=== PATIENT | female | born 1985 | race Caucasian/White ===

== ENCOUNTER 2018-12-23 21:45 | Outpatient (CLI) | payer OTHER ==
[~2018-12-23] VITALS: Ht 167.6 cm; Wt 77.5 kg
[2018-12-23 21:37] VITALS: Ht 167.6 cm; Wt 77.5 kg
[2018-12-23 21:54] VITALS: BP 119/70; PULSE 87; RESP 20
[2018-12-23] MEDS ORDERED: FER325 PO (22:13)
[2018-12-23] MEDS ORDERED: PREN-99 PO (22:13)
[2018-12-23] MEDS ORDERED: LORA10CA9 PO (22:13)
[2018-12-23] MEDS ORDERED: TERBUTALINE 1 MG/ML INJ SC STA (22:48)
[2018-12-23] MEDS ORDERED: LACTATED RINGER'S 1,000 ML IV ONE (23:00)
[2018-12-24] MEDS ORDERED: LACTATED RINGER'S 1,000 ML IV SCH
--- NOTE | 2018-12-24 01:51 | PN ---
Triage Information Date/Time Reason for visit: Abd/pelvic pain Weeks of Gestation 33-year-old 1 para 0 at 29 weeks and 2 days of gestation with estimated date of delivery February 28, 2019 The patient presents with chief complaint of abdominal pain and uterine contractions She reports positive movement, denies vaginal bleeding or leaking fluid /Para 1 para 0 Diabetes: none Hypertention: none Objective Vital Signs Date Temp Pulse Resp B/P (MAP) Pulse Ox O2 O2 Flow FiO2 Time Delivery Rate 12/23/18 97.8 87 20 119/70 Room Air 21:54 (86) Intake and Output 12/23/18 12/23/18 12/24/18 1515:00 23:00 07:00 IntakeIntake Total 1000 ml BalanceBalance 1000 ml Heart Rate: 140's Heart Rate Comments heart rate tracing category 1 Contractions: < 5 Minutes Apart Exam Cervix closed per nurse Results/Medications Result Diagram: 12/23/18 2345 Results 24 hrs Laboratory Tests Test 12/23/18 22:00 12/23/18 23:45 Urine Color COLORLESS Urine Clarity CLEAR Urine pH 7.0 Urine Specific [place] 1.002 L Urine Ketones NEGATIVE Urine Nitrite NEGATIVE Urine Bilirubin NEGATIVE Urine Urobilinogen NEGATIVE Urine Leukocyte Esterase 1+ H Urine Microscopic RBC 0 Urine Microscopic WBC 1 Urine Hemoglobin NEGATIVE Urine Glucose NEGATIVE Urine Total Protein NEGATIVE White Blood Count 12.2 H Red Blood Count 3.84 L Hemoglobin 11.8 L Hematocrit 34.6 L Mean Corpuscular Volume 90.1 Mean Corpuscular Hemoglobin 30.7 Mean Corpuscular Hemoglobin Concent 34.1 Red Cell Distribution Width 12.9 Platelet Count 191 Mean Platelet Volume 11.2 H Immature Granulocytes % 3.800 H Neutrophils % 61.9 Lymphocytes % 25.7 Monocytes % 7.8 Eosinophils % 0.4 Basophils % 0.4 Nucleated Red Blood Cells % 0.0 Immature Granulocytes # 0.460 H Neutrophils # 7.5 Lymphocytes # 3.1 H Monocytes # 1.0 H Eosinophils # 0.1 Basophils # 0.1 Nucleated Red Blood Cells # 0.0 Medications Current Medications Lactated Ringer's 1,000 ml @ 125 mls/hr Q8H IV ; Start 12/24/18 at 00:00 Imaging Results PROCEDURE: US OB biophysical profile. Ultrasound cervix CLINICAL INDICATION: decreased movements, labor TECHNIQUE: Multiple sonographic images of the pelvis were obtained. In addition, transvaginal images of the cervix were obtained. The images were reviewed on a PACS workstation. COMPARISON: No prior studies are available for comparison. FINDINGS: The cervix measures 2.9 cm in length. There is a single live intrauterine gestation. Cardiac activity is present with 123 beats per minute. There is a vertex presentation. The placenta is anterior. There is no evidence of placental abruption. There is a normal amount of amniotic fluid with an LOPEZ = 16.6 cm. Biophysical profile: movement 2/2 tone 2/2. breathing 2/2 LOPEZ 2/2 Total 04/06 RPTAT: AA . IMPRESSION: Normal biophysical profile. Cervix measures 2.9 cm in length. .Darron Marcano MD, Date Time Electronically viewed and signed by .Darron Marcano MD, on 12/23/2018 22:54 .S/ CC: FRANCA SALEH MD [phone] Disposition: Discharge Assessment/Plan Patient received IV fluids and terbutaline Urine culture was sent kick count instructions were given Labor precautions were given Copies To: CC: FRANCA SALEH MD ; MYRA MCBRIDE MD Dec 24, 2018 01:51
--- NOTE | 2018-12-25 04:39 | TRIAGE ---
OB Triage Datetime Report Generated by CPN: 12/25/2018 04:39 Datetime: 12/24/2018 00:15 Labor Evaluation Frequency: NONE Monitor Mode: External Heart Rate FHR Baseline Rate: 135 Monitor Mode: External US Variability: Moderate 6-25 bpm Accelerations: 15X15 Decelerations: None Category: Category I Datetime: 12/23/2018 23:52 Monitor Mode: External Datetime: 12/23/2018 23:26 Labor Evaluation Frequency: IRREGULAR Monitor Mode: External Duration (sec)2399: 40-60 Quality: Mild Pattern: Normal: <= 5 Contractions in 10 Minutes Resting Tone [place]: Relaxed Heart Rate FHR Baseline Rate: 130 Monitor Mode: External US Variability: Moderate 6-25 bpm Accelerations: 15X15 Decelerations: None Category: Category I Datetime: 12/23/2018 23:22 Monitor Mode: External US Datetime: 12/23/2018 23:21 Monitor Mode: External Datetime: 12/23/2018 23:19 Monitor Mode: External US Datetime: 12/23/2018 22:32 Vaginal Exam Dilatation (cms): 0.0 Effacement (%): 0 Station: -3 Exam By: azy k RN Membrane Status: Intact Datetime: 12/23/2018 22:30 Labor Evaluation Frequency: 2-4 Monitor Mode: External Duration (sec)2399: 50-70 Quality: Moderate Pattern: Normal: <= 5 Contractions in 10 Minutes Resting Tone [place]: Relaxed Heart Rate FHR Baseline Rate: 130 Monitor Mode: External US Variability: Moderate 6-25 bpm Accelerations: 15X15 Decelerations: None Category: Category I Datetime: 12/23/2018 21:59 Monitor Mode: External Datetime: 12/23/2018 21:52 Monitor Mode: External Datetime: 12/23/2018 21:51 Monitor Mode: External US Datetime: 12/23/2018 21:50 Stage of : OB Triage Datetime: 12/23/2018 21:48 Time of Arrival: 12/23/2018 21:37 EGA: 29.0 Arrived By: Wheelchair Arrived From: Home Chief Complaint: c/o constant abdominal pain since 1900 after running after her dog and bending ove r to carry the dog Movement: Present Contractions: Denies/Absent Rupture of Membranes: Denies Vaginal Bleeding: None Vaginal Discharge: Denies Recent Sexual Intercouse: Denies Abdominal Trauma: Not Applicable Patient Complaints: Other Time Provider Notified: 12/23/2018 22:20 Provider Notified: Dr Zamarripa Initial Plan: EFM,CVL,BPP,UA,TERB,IV HYDRATION
== END 2018-12-24 01:45 | disposition home or self-care (01) ==
LOC: OBT 21:45 → L-D 21:47 → OBT 12-24 01:45
PROVIDERS: ATTEND Obstetrics & Gynecology
DX: O62.9 Abnormality of forces of labor, unspecified (principal); O26.893 Other specified pregnancy related conditions, third trimester; R10.2 Pelvic and perineal pain; Z3A.29 29 weeks gestation of pregnancy
CPT/HCPCS: 36415; 76817; 76818; 81001; 85025; 87086; 96360; 96372; G0463; J3105; J7120

== ENCOUNTER 2019-02-23 13:05 | Outpatient (CLI) | payer OTHER ==
[~2019-02-23] VITALS: Ht 167.6 cm; Wt 81.0 kg
[~2019-02-23 13:05] MED LIST: FER325 PO; LORA10CA9 PO; PREN-99 PO
[2019-02-23 13:24] VITALS: Ht 167.6 cm; Wt 81.0 kg
[2019-02-23 13:38] VITALS: BP 112/76
--- NOTE | 2019-02-23 14:42 | PN ---
Triage Information Date/Time 02/23/2019 Reason for visit: well-being Weeks of Gestation 39.2 /Para 1 para 0 Diabetes: none Hypertention: none Objective Vital Signs Date Temp Pulse Resp B/P (MAP) Pulse Ox O2 O2 Flow FiO2 Time Delivery Rate 02/23/19 98.5 112/76 13:38 (88) Heart Rate: 140's Heart Rate Comments Reactive Contractions: None Results/Medications Imaging Results 1. Single living intrauterine gestation in cephalic position. 2. Biophysical profile = 8/8. 3. LOPEZ = 13.8 cm. Disposition: Discharge Assessment/Plan Home Will induce EDC FRANCA SALEH MD Feb 23, 2019 14:42
--- NOTE | 2019-02-23 14:47 | TRIAGE ---
OB Triage Datetime Report Generated by CPN: 02/23/2019 14:46 Datetime: 02/23/2019 13:19 Stage of : OB Triage Assessment Type: Triage Time of Arrival: 02/23/2019 12:55 EGA: 37.6 Arrived By: Ambulatory Arrived From: Office Chief Complaint: SENT NST BPP DFM Movement: Decreased Contractions: Denies/Absent Rupture of Membranes: Denies Vaginal Bleeding: None Vaginal Discharge: Denies Recent Sexual Intercouse: Denies Abdominal Trauma: Not Applicable Patient Complaints: None Time Provider Notified: 02/23/2019 13:00 Provider Notified: LAW Initial Plan: NST BPP Maternal Assessment Level of Consciousness: Keenly Alert, Responsive DTR's/Clonus: DTRs 2+; No Clonus Headache: Denies Blurred Vision: No Respiratory Effort: Unlabored; Regular Rhythm; Equal Expansion Breath Sounds, Left: Clear and Equal Breath Sounds, Right: Clear and Equal Nausea/Vomiting: Denies RUQ Epigastric Pain: Denies Lower Extremities Edema: None Degree: None Upper Extremities Edema: None Degree: None Facial Edema: None Temperature Route: Oral Fall Risk Assessment History of Falling: (0) No Secondary Diagnosis: (0) No Ambulatory Aid: (0) Bedrest/Nurse Assist IV Therapy: (0) No Gait: (0) Normal/Bedrest/Immobile Mental Status: (0) Oriented to Own Ability Fall Score: 0 Fall Risk Score Definition: No Risk: No action required Labor Evaluation Monitor Mode: External (Annotations: INITIAL PLAcement ) Monitor Mode: External US (Annotations: initial placement ) Pain Assessment Pain Scale: 0 Pain Presence: None/Denies Pain Type: N/A Datetime: 12/24/2018 01:23 Stage of : OB Triage Labor Evaluation Monitor Mode: External Quality: Mild Pattern: Normal: <= 5 Contractions in 10 Minutes Resting Tone [place]: Relaxed Heart Rate FHR Baseline Rate: 140 Monitor Mode: External US FHR Baseline Changes: No Baseline Change Variability: Moderate 6-25 bpm Accelerations: 15X15 Decelerations: None Category: Category I Pain Assessment Pain Scale: 0 Pain Presence: None/Denies Pain Type: N/A Datetime: 12/23/2018 21:48 EGA: 29.0
== END 2019-02-23 15:00 | disposition home or self-care (01) ==
LOC: L-D 13:05 → OBT 13:05 → L-D 13:14 → OBT 15:00
PROVIDERS: ATTEND Obstetrics & Gynecology
DX: O36.8130 Decreased fetal movements, third trimester, not applicable or unspecified (principal); Z3A.39 39 weeks gestation of pregnancy
CPT/HCPCS: 76818; Z7500; G0463

== ENCOUNTER 2019-02-28 04:03 | Inpatient (IN) | payer OTHER ==
[~2019-02-28] VITALS: Ht 167.6 cm; Wt 80.8 kg
[2019-02-28 04:26] VITALS: Ht 167.6 cm; Wt 80.8 kg
[2019-02-28] MEDS ORDERED: OXYTOCIN 30 UNITS/LR 500 ML IV PRN (04:30)
[2019-02-28] MEDS ORDERED: OXYTOCIN 30 UNITS/LR 500 ML IV SCH ×2 (04:30)
[2019-02-28] MEDS ORDERED: CARBOPROST 250 MCG INJ IM PRN (04:30)
[2019-02-28] MEDS ORDERED: LIDOCAINE 1% (MPF) 30 ML INJ INJ PRN (04:30)
[2019-02-28] MEDS ORDERED: MISOPROSTOL 200 MCG TAB PR PRN (04:30)
[2019-02-28] MEDS ORDERED: METHYLERGONOVINE 0.2 MG INJ IM PRN (04:30)
[2019-02-28] MEDS ORDERED: LACTATED RINGER'S 1,000 ML IV PRN (04:30)
[2019-02-28] MEDS ORDERED: MINERAL OIL LIGHT 10 ML VIAL TOP PRN (04:30)
[2019-02-28] MEDS ORDERED: BUTORPHANOL 2 MG INJ IV PRN (04:30)
[2019-02-28] MEDS: LACTATED RINGER'S 1,000 ML IV SCH ×4 (05:50→21:08)
--- NOTE | 2019-02-28 12:18 | HP ---
Date/Time of Note Date/Time of Note DATE: 02/28/19 TIME: 12:14 OB - History Hx of Present Free Text/Dictation 33-year-old female 1 para 0 at 40 weeks gestation was supposed to be induced on 02 28 however presented herself in labor started few hours prior to admission Chief Complaint: Labor contractions Last Menstrual Period: May 24, 2018 Estimated Due Date: Feb 28, 2019 : 1 Para: 0 Care: Good Care Ultrasounds: Normal mid trimester US Obstetrical Complications: None Medical Complications: None Past Family/Social History * Past Medical, Surgical, Family and Obstetric Histories reviewed from chart. Blood Type: AB+ Rubella: immune RPR/VDRL: Negative GBS Status: Negative HBsAG: Negative OB Admission Exam Vital Signs Vital Signs Vital signs are stable Physical Exam HEENT: WNL Heart: Rhythm Normal Lungs: Clear, Equal Abdomen: WNL Extremities: Normal Reflexes: Normal Cervical Dilatation: 3cm Effacement: 50% Station: -3 Membranes: Intact Heart Rate: 140's Accelerations: Accelerations Present Decelerations: No Decelerations Varibility: Marked Contractions on Admission: < 5 Minutes Apart Date/Time Contractions Began: 02/28/2019 Frequency of Contractions: Every 4 to 5 minutes Duration: Over 60 seconds Intensity: Mild Last 72 hours Lab Results CBC & BMP 02/28/19 04:50 OB Assessment/Plan Other Assessment: Term gestation in labor pains Other plan: Proceed with a spontaneous labor and augment if necessary FRANCA SALEH MD Feb 28, 2019 12:18
[2019-02-28] MEDS ORDERED: FENTAnyl 2MCG/ML-ROPIV 0.2% 100 ML ONE (20:13)
--- NOTE | 2019-02-28 20:16 | PREAC ---
Date/Time of Note Date/Time of Note DATE: 02/28/19 TIME: 20:15 Anesthesia Eval and Record Evaluation Time Pre-Procedure Interview DATE: 02/28/19 TIME: 20:15 Age 33 Sex female NPO: 8 hrs Preoperative diagnosis LABOR PAIN Planned procedure LABOR EPIDURAL Past Medical History Past Medical History: Includes : : (1), Para: (0), Gestational age: (40 WKS) Surgery & Anesthesia Issues No known issue Meds Anticoagulation: No Beta Dalton within 24 hr: No Reason Beta Dalton not given: Pt. not on B-Dalton Reported Medications Loratadine (Loratadine) 10 Mg Capsule, 10 MG PO, CAP 12/23/18 Ferrous Sulfate* (Ferrous Sulfate*) 325 Mg Tabec, 325 MG PO DAILY, TAB 12/23/18 Vit #76/Iron,Carb/FA (Pnv 29-1 Tablet) 1 Each Tablet, 1 EACH PO, TAB 12/23/18 Current Medications Lactated Ringer's 1,000 ml @ 125 mls/hr Q8H IV Last administered on 02/28/19at 15:20; Admin Dose 125 MLS/HR; Start 02/28/19 at 04:30 Butorphanol Tartrate (Stadol) 2 mg Q2H PRN IV .PAIN SCALE 6-10; Start 02/28/19 at 04:30 Lidocaine (Xylocaine 1% (Mpf)) 30 ml ONCE PRN INJ .EPISIOTOMY; Start 02/28/19 at 04:30 Oxytocin/Lactated Ringer's 500 ml @ 500 mls/hr ONCE POST IV ; Start 02/28/19 at 04:30 Oxytocin/Lactated Ringer's 500 ml @ 125 mls/hr POST IV ; Start 02/28/19 at 04:30 Lactated Ringer's 1,000 ml @ 2,000 mls/hr Q30M PRN IV .ANESTHESIA Last administered on 02/28/19at 19:48; Admin Dose 2,000 MLS/HR; Start 02/28/19 at 04:30 Oxytocin/Lactated Ringer's 500 ml @ 0 mls/hr ONCE PRN IV .VAGINAL BLEEDING; Start 02/28/19 at 04:30 Methylergonovine Maleate (Methergine) 0.2 mg ONCE PRN IM .VAGINAL BLEEDING; Start 02/28/19 at 04:30 Carboprost Tromethamine (Hemabate) 250 mcg ONCE PRN IM .VAGINAL BLEEDING; Start 02/28/19 at 04:30 Misoprostol (Cytotec) 1,000 mcg ONCE PRN ME .VAGINAL BLEEDING; Start 02/28/19 at 04:30 Meds reviewed: Yes Allergies Coded Allergies: No Known Allergy (Unverified , 02/28/19) Allergies Reviewed: Yes Labs/Studies Labs Reviewed: Reviewed by anesthesiologist Result Diagram: 02/28/19 0450 Laboratory Tests 02/28/19 04:50 Blood Bank Test 02/28/19 04:50 Antibody Screen NEGATIVE Blood Type AB POSITIVE Rh Immune Globulin Candidate NO test: N/A Pre-procedure Exam Airway: Adequate mouth opening, Adequate thyromental dist Mallampati: Mallampati II Teeth: Normal Lung: Normal Heart: Normal ASA Physical Status ASA physical status: 2 Emergency: None Planned Anesthetic Neuraxial: Epidural Planned Pain Management Epidural Pre-operative Attestations Prior to commencing anesthesia and surgery, the patient was re-evaluated, there was verification of: *The patient's identity *The results of appropriate recent lab work and preoperative vital signs *The above evaluation not changing prior to induction *Anesthetic plan, risk benefits, alternative and complications discussed with patient/family; questions answered; patient/family understands, accepts and wishes to proceed. Venkatesh Calhoun M.D. Feb 28, 2019 20:16
--- NOTE | 2019-02-28 20:55 | PAC ---
Date/Time of Note Date/Time of Note DATE: 02/28/19 TIME: 20:54 Post-Anesthesia Notes Post-Anesthesia Note Last documented vital signs HR 77 RR 14 BP 117/89 T 98 Activity: WNL Respiratory function: WNL Cardiovascular function: WNL Mental status: Baseline Pain reasonably controlled: Yes Hydration appropriate: Yes Nausea/Vomiting absent: Yes Venkatesh Calhoun M.D. Feb 28, 2019 20:55
[2019-02-28] MEDS ORDERED: TRIMETHOBENZAMIDE 100 MG/ML VIAL IM PRN (21:00)
[2019-02-28] MEDS ORDERED: NALOXONE (0.4 MG/ML) INJ IV PRN (21:00)
[2019-02-28] MEDS ORDERED: ONDANSETRON 4 MG INJ IV PRN (21:00)
[2019-02-28] MEDS ORDERED: DIPHENHYDRAMINE 50 MG INJ IV PRN (21:00)
[2019-03-01] MEDS ORDERED: MINERAL OIL LIGHT 10 ML VIAL TOP ONE
[2019-03-01] MEDS: FENTAnyl 2MCG/ML-ROPIV 0.2% 100 ML BAG EPI SCH ×2 (03:45→10:41)
[2019-03-01] MEDS: LACTATED RINGER'S 1,000 ML IV SCH ×2 (04:13→12:08)
[2019-03-01] MEDS ORDERED: KETOROLAC 30 MG INJ IV STA (14:38)
[2019-03-01] MEDS ORDERED: ACETAMINOPHEN 500 MG TAB PO STA (14:53)
--- NOTE | 2019-03-01 14:53 | LDN ---
Date/Time of Note Date/Time of Note DATE: 03/01/19 TIME: 14:50 Delivery Summary Normal spontaneous vaginal delivery of viable infant over midline episiotomy Weeks of Gestation 40+ weeks Placenta Delivered: Spontaneously, Intact & Complete Meconium: Particulate Episiotomy: Yes Indication for episiotomy Thick particulate meconium Along second stage Perineal laceration: 0 Laceration repair: Midline episiotomy was repaired in layers using 2-0 Vicryl running stitch on deeper layers and 2 chromic and superficial layer Anesthesia type: Epidural Estimated blood loss: 300 Sponge & Needle done & correct: Yes All needle counts correct: Yes Any foreign bodies felt in the: No Infant Delivery Information Sex Infant Sex: male Apgars 1 Minute: 8 5 Minute: 9 Suctioning Nose & mouth suctioned at carlos: Yes Delee suction performed: No Umbilical Cord Umbilical cord with: 3 Vessels Cord presentations: no nuchal cord Cord Blood was obtained: Yes Mother & Baby Disposition Disposition Mom & Baby to Maternity; Good: Yes (Mother and baby were recovering in good condition) Mom transferred to: Other (Maternity floor) Baby to NICU: No FRANCA SALEH MD Mar 01, 2019 14:53
[2019-03-01 16:30] VITALS: BP 110/63; PULSE 62; RESP 18
[2019-03-01] MEDS: LACTATED RINGER'S 1,000 ML IV* SCH (16:45)
[2019-03-01] MEDS ORDERED: CARBOPROST 250 MCG INJ IM PRN (17:00)
[2019-03-01] MEDS ORDERED: BENZOCAINE 20% 56 ML SPRAY TOP PRN (17:00)
[2019-03-01] MEDS ORDERED: MISOPROSTOL 200 MCG TAB PR PRN (17:00)
[2019-03-01] MEDS ORDERED: METHYLERGONOVINE 0.2 MG INJ IM PRN (17:00)
[2019-03-01] MEDS ORDERED: OXYTOCIN 30 UNITS/LR 500 ML IV PRN (17:00)
[2019-03-01] MEDS ORDERED: WITCH HAZEL/GLYCERIN PAD PR PRN (17:00)
[2019-03-01] MEDS ORDERED: DIBUCAINE 1% 30 GM OINT TOP PRN (17:00)
[2019-03-01] MEDS ORDERED: HYDROCODONE/APAP (5/325) TAB PO PRN ×2 (17:00)
[2019-03-01] MEDS ORDERED: ZOLPIDEM 5 MG TAB PO PRN (17:00)
[2019-03-01] MEDS: CEPHALEXIN 500 MG CAP PO SCH ×2 (17:49→23:54)
[2019-03-01] MEDS: IBUPROFEN 600 MG TAB PO SCH ×2 (17:49→23:54)
[2019-03-01] MEDS: LANOLIN HPA 1 PKT TOP PRN (19:06)
[2019-03-01 20:00] VITALS: BP 130/72; PULSE 55; RESP 18
[2019-03-01] MEDS: MAGNESIUM HYDROXIDE 30ML CUP PO SCH (21:23)
[2019-03-01] MEDS: SENNA/DOCUSATE NA (8.6MG/50MG) TAB PO SCH (21:23)
[2019-03-02] VITALS: BP 128/66; PULSE 70; RESP 18
[2019-03-02] MEDS: LACTATED RINGER'S 1,000 ML IV* SCH (00:45)
[2019-03-02 04:00] VITALS: BP 133/80; PULSE 60; RESP 18
[2019-03-02] MEDS: CEPHALEXIN 500 MG CAP PO SCH ×4 (05:30→23:18)
[2019-03-02] MEDS: IBUPROFEN 600 MG TAB PO SCH ×4 (05:30→23:19)
[2019-03-02 07:45] VITALS: BP 95/63; PULSE 54; RESP 16
[2019-03-02] MEDS: SENNA/DOCUSATE NA (8.6MG/50MG) TAB PO SCH ×2 (08:50→21:59)
[2019-03-02] MEDS: MAGNESIUM HYDROXIDE 30ML CUP PO SCH ×2 (08:50→21:59)
--- NOTE | 2019-03-02 11:41 | DS ---
Date/Time of Note Date/Time of Note Home today or next day DATE: 03/02/19 TIME: 11:40 Obstetrical Discharge Record Final Diagnosis Final Diagnosis: Term delivered Other Final Diagnosis Status post vaginal delivery Vaginal Delivery Obstetrical Delivery: Spontaneous, Episiotomy, Repaired Complications Augmentation: No Induction: No Condition on Discharge Physical Assessment Last Vitals: See nurse's notes Voiding: Yes Bowel Movement: Yes Breast: Soft, non-tender, Filling Fundus: Firm Abdomen and Incision: Abdomen is soft with firm fundus Episiotomy: Episiotomy appears to be healing well and perineum is clean Calf Tenderness: No Patient Condition: Good FRANCA SALEH MD Mar 02, 2019 11:41
--- NOTE | 2019-03-02 11:43 | PD.PPDC ---
INSTITUTIONAL ASSET MANAGER Discharge Instruction Provider Information Physician Information 33-year-old female had vaginal delivery Diagnosis [id number] Final Diagnosis: Qoicx9c Status post vaginal delivery Condition Nurul9Es Patient Condition: Arcla5g Good Diet Tnoll5Sk Diet: Scmxe7z Resume Regular Diet Activity/Restrictions [id number] Activity: Knykd7l Normal Activity May Shower [id number] Restrictions: Dfasx4g Nothing in the Vagina [id number] Return to Work or School: [id number] Apr 17, 2019 Follow-up Follow-up with Physician: 2, 4, Week/Weeks Return to clinic for [id number] OB Instructions: Sfwqj2c Breast Tenderness Depression Comment: Pelvic rest for 6 weeks FRANCA SALEH MD Mar 02, 2019 11:43
[2019-03-02] MEDS ORDERED: IBUP-1542 PO (11:45)
[2019-03-02 16:00] VITALS: BP 97/64; PULSE 65; RESP 18
[2019-03-02 20:15] VITALS: BP 102/67; PULSE 68; RESP 18
[2019-03-02] MEDS: LANOLIN HPA 1 PKT TOP PRN (23:18)
[2019-03-03 04:30] VITALS: BP 116/60; PULSE 69; RESP 18
[2019-03-03] MEDS: IBUPROFEN 600 MG TAB PO SCH ×2 (05:49→11:51)
[2019-03-03] MEDS: CEPHALEXIN 500 MG CAP PO SCH ×2 (05:49→11:51)
[2019-03-03 08:00] VITALS: BP 121/70; PULSE 64; RESP 18
[2019-03-03] MEDS: LANOLIN HPA 1 PKT TOP PRN (08:51)
[2019-03-03] MEDS: MAGNESIUM HYDROXIDE 30ML CUP PO SCH (08:51)
[2019-03-03] MEDS: SENNA/DOCUSATE NA (8.6MG/50MG) TAB PO SCH (08:51)
[2019-03-03] MEDS ORDERED: MEASLES,MUMPS,RUBELLA VACCINE INJ SC* ONE (09:00)
[2019-03-03] MEDS ORDERED: DIPHTH/TET/ACEL PERTUSS (ADULT) 0.5 ML VIAL IM* ONE (09:00)
[2019-03-03] MEDS ORDERED: VARICELLA VACCINE LIVE/PF 1,350 UNIT/0.5 ML ML SC* ONE (09:00)
[2019-03-03 15:55] VITALS: BP 110/74; PULSE 68; RESP 16
--- NOTE | 2019-03-04 18:53 | DELSUM ---
Delivery Summary A-C Datetime Report Generated by CPN: 03/04/2019 18:52 DELIVERY PERSONNEL Clinical Nutrition Manager: Duvo, Sharon MATERNAL INFORMATION Delivery Anesthesia: Epidural Medications in Delivery: PITOCIN 30 UNITS Delivery QBL (ml): 246 Placenta Cultured: Yes Maternal Complications: None LABOR SUMMARY EDC: 02/28/2019 00:00 No. Babies in Womb: 1 Attempted: No Labor Anesthesia: Epidural LABOR INFORMATION Reason for Induction: Not Applicable Onset of Labor: 02/27/2019 23:00 Complete Dilatation: 03/01/2019 02:34 Oxytocin: N/A Group B Beta Strep: Negative Antibiotics # of Doses: 0 Steroids Given: None Reason Steroids Not Administered: Not Applicable MEMBRANES Membranes Rupture Method: Spontaneous Rupture of Membranes: 03/01/2019 04:16 Length of Rupture (hr): 10.28 Amniotic Fluid Color: Heavy Meconium Amniotic Fluid Amount: Copious Amniotic Fluid Odor: None STAGES OF LABOR Stage 1 hr: 27 Stage 1 min: 34 Stage 2 hr: 11 Stage 2 min: 59 Stage 3 hr: 0 Stage 3 min: 3 Total Time in Labor hr: 39 Total Time in Labor min: 36 VAGINAL DELIVERY Episiotomy: Median Laceration Extension: N/A Laceration Type: None Initial Vag Sponge Count: 10 Final Vag Sponge Count: 10 Initial Vag Sharps Count: 1 Final Vag Sharps Count: 3 Sponge Count Correct: Yes; Vaginal Sweep Performed Sharps Count Correct: Yes BABY A INFORMATION Infant Delivery Date/Time: 03/01/2019 14:33 Method of Delivery: Vaginal Born in Route : No : N/A Forceps: N/A Vacuum Extraction: Successful Shoulder Dystocia : No ASSISTED DELIVERY BABY A Indication for Assisted Delivery: VARIABLE DECELERATION Catheter Prior to Procedure: Yes Station Vacuum/Forcep Apply: +2 Position Vacuum/Forcep Apply: Left Occipital Anterior Vacuum Number of Pulls: 3 Vacuum Number of PopOffs: 2 Reduce Pressure btwn Ctx: Yes Vacuum Quitline Counselor: KIWI Total Time Vacuum Applied: 36 SECONDS Vacuum/Forceps Comment: MD PRESSURE APPLIED. SHOULDER DYSTOCIA BABY A Infant Delivery Date/Time: 03/01/2019 14:33 PRESENTATION/POSITION BABY A Presentation: Cephalic Cephalic Presentation: Vertex Vertex Position: Left Occipital Anterior Breech Presentation: N/A PLACENTA INFORMATION BABY A Placenta Delivery Time : 03/01/2019 14:36 Placenta Method of Delivery: Spontaneous Placenta Status: Delivered SCORES BABY A Heart Rate 1 min: >100 bpm Resp Effort 1 min: Good Cry Reflex Irritability 1 min: Cough/Sneeze/Pulls Away Muscle Tone 1 min: Active Motion Color 1 min: Blue/Pale Resuscitation Effort 1 min: Tactile Stimulation SCORE 1 MIN: 8 Heart Rate 5 min: >100 bpm Resp Effort 5 min: Good Cry Reflex Irritability 5 min: Cough/Sneeze/Pulls Away Muscle Tone 5 min: Active Motion Color 5 min: Body [place], Extremit Blue Resuscitation Effort 5 min: Tactile Stimulation SCORE 5 MIN: 9 INFORMATION BABY A Gestational Age at Delivery: 40.1 Gestational Status: Full Term- 39- 40.6 Weeks Infant Outcome : Liveborn, with signs of life Condition : Stable Sex: Male IDENTIFICATION/MEDS BABY A ID Band Number: [id number] ID Band Location: Right Leg; Left Arm Sensor Applied: Yes Sensor Number: [id number] Sensor Location : Cord Clamp Vitamin K Given : Not Given Erythromycin Given: Not Given WEIGHT/LENGTH BABY A Infant Birthweight (gm): 3305 Infant Weight (lb): 7 Infant Weight (oz): 5 Infant Length (in): 20.50 Length (cm): 52.07 CORD INFORMATION BABY A No. Cord Vessels: 3 Nuchal Cord : N/A Cord Blood Taken: Yes Infant Suction: Mouth; Nose ASSESSMENT BABY A Complications: Meconium Physical Findings at Delivery: Caput Succedaneum; Molding of the Head Respirations: Appears Normal Waste Disposal Attendant/ALS Called : Yes Care By: So MARIA Transferred To: Remains with Mother
== END 2019-03-03 18:51 | disposition home or self-care (01) | DRG 807 ==
LOC: OBT 04:03 → L-D 04:03 → OBT 04:38 → L-D 11:02 → PP1 03-01 16:35
PROVIDERS: ADMIT Obstetrics & Gynecology; ATTEND Obstetrics & Gynecology
PROC: 10E0XZZ Delivery of Products of Conception, External Approach (ICD-10-PCS; principal; 2019-03-01)
PROC: 0W8NXZZ Division of Female Perineum, External Approach (ICD-10-PCS; 2019-03-01)
DX: O77.0 Labor and delivery complicated by meconium in amniotic fluid (principal); Z37.0 Single live birth; Z3A.40 40 weeks gestation of pregnancy
CPT/HCPCS: 62322; 85025; 85610; 85730; 86592; 86850; 86900; 86901; 87340; 88307; 90716; 99464; G0463; J1885; J2590; J3010; J7120